=== PATIENT | female | born 1955 | race Caucasian/White ===

== ENCOUNTER 2016-12-19 17:44 | Emergency (ER) | payer OTHER ==
[2016-12-19 18:50] LABS: RED BLOOD COUNT 5.14 M/UL (4.00-5.10); WHITE BLOOD COUNT 6.4 K/UL (4.5-11.0)
[2016-12-19 19:15] LABS: BUN/CREATININE RATIO 18 (0-10)
== END 2016-12-19 21:00 | disposition home or self-care (01) ==
LOC: ER1 17:44
PROVIDERS: Emergency Medicine
DX: R00.2 Palpitations (principal); I49.1 Atrial premature depolarization; E78.5 Hyperlipidemia, unspecified; F41.1 Generalized anxiety disorder; H81.09 Meniere's disease, unspecified ear; F17.200 Nicotine dependence, unspecified, uncomplicated; Z79.899 Other long term (current) drug therapy
CPT/HCPCS: 36415; 71010; 80053; 82550; 82553; 83735; 83874; 83880; 84436; 84443; 84484; 85025; 93005; 94664; 99285; J7030

== ENCOUNTER → 2020-12-07 | Outpatient (CLI) | payer MEDICARE, OTHER ==
[~2020-12-07] MED LIST: VIBRAMYCIN100 MG PO
== END ==
LOC: HEART 5 12-02 09:30
DX: R07.9 Chest pain, unspecified (principal); R00.2 Palpitations